=== PATIENT | male | born 1960 | race Caucasian/White ===

== ENCOUNTER 2022-08-26 16:56 | Emergency (ER) | payer OTHER ==
[~2022-08-26] VITALS: Ht 193 cm; Wt 106.8 kg
[2022-08-26] MEDS ORDERED: KETOROLAC TROMETH 60MG/2ML VIAL IM ONE (19:45)
[2022-08-26] MEDS ORDERED: ONDANSETRON ODT 4 MG TAB PO ONE (20:00)
[2022-08-26] MEDS ORDERED: ACE3T PO (20:03)
[2022-08-26] MEDS ORDERED: CYCL-837 PO (20:03)
[2022-08-26] MEDS ORDERED: MORPHINE SULFATE 4 MG/ML SYR/VIAL IM ONE (20:15)
[2022-08-26 21:40] VITALS: BP 151/92
== END 2022-08-26 21:51 | disposition home or self-care (01) ==
LOC: ER 16:56
DX: S39.012A Strain of muscle, fascia and tendon of lower back, initial encounter (principal); G89.29 Other chronic pain; I10 Essential (primary) hypertension; X58.XXXA Exposure to other specified factors, initial encounter; Y93.89 Activity, other specified; Y92.89 Other specified places as the place of occurrence of the external cause; Y99.8 Other external cause status
CPT/HCPCS: 72131; 96372; 99284; J2270; Q0162